=== PATIENT | female | born 1945 | race Caucasian/White ===

== ENCOUNTER 2023-10-07 12:22 | Emergency (ER) | payer MEDICARE, SELFPAY ==
[2023-10-07 12:23] VITALS: BP 118/72
--- NOTE | 2023-10-07 13:35 | ED.GENMED ---
History of Present Illness
General
Chief Complaint: Anal/Rectal Problem
Time Seen by Provider: 10/07/23 13:35
Travel History
Have you had any contact with someone who has COVID-19?: No
Do you have any symptoms of coronavirus? Fever > 100 degrees, chills, cough, shortness of breath, sore throat, loss of taste or smell, muscle aches, or headache?: No
History of Present Illness
History of Present Illness:
HPI: Patient presents by ambulance from [facility] [employer] [facility] with concerns for prolapsed rectum. Of note, the patient was also have an IR procedure for liver biopsy due to abnormal recent CT imaging of the abdomen pelvis with concern for
liver cancer. The patient has no pain. She states she has had another similar episode of rectal prolapse about 5 years
EXAM:
GENERAL: Well appearing in no distress
HEENT: Moist oral mucosa
ABDOMEN: Soft with no peritoneal signs, no tenderness, small external hemorrhoid which is soft and nontender, there is no suggestion of rectal prolapse but I did push on the perianal region
NEUROLOGIC: Excellent strength all extremities, no coordination deficits
PSYCHIATRIC: Appropriate mental status, normal insight and judgement
EXTREMITIES: Nontender, no edema, moves all extremities equally
SKIN: No rash, no lesions
ED COURSE:
1:45 PM: I initially evaluated patient
NUMBER AND COMPLEXITY OF PROBLEMS ADDRESSED AT THE ENCOUNTER
� Chronic conditions affecting care: Memory loss, high blood pressure, anxiety/depression
� Acute Exacerbation and/or Progression of Chronic Illness: This is a recurring problem
� Differential Diagnosis includes: Prolapsed rectum, external hemorrhoid, thrombosed external hemorrhoid
AMOUNT AND/OR COMPLEXITY OF DATA TO BE REVIEWED AND ANALYZED
� I performed an independent evaluation of and my interpretation is:
EKG:
CT:
X-rays:
Laboratory Studies:
Other:
� Review of other/old records: The patient had a CAT scan 2 weeks ago of the abdomen pelvis which showed a large heterogeneous hepatic mass with concern for malignancy
� Clinical information was obtained by an independent historian:
� Prescriptions/Medications Considered but not given:
� Further testing considered but not performed: Imaging not indicated
RISK OF COMPLICATIONS AND/OR MORBIDITY OR MORTALITY OF PATIENT MANAGEMENT
� Social determinants of health affecting care: Lives at [facility]
� Discussion with other providers: I spoke to IR, Dr. Mirza who recommends the patient reschedule liver biopsy
� Escalation of care including admission/observation vs risk of discharge considered: No evidence of rectal prolapse on physical examination. IR will not do the liver biopsy today as the patient ate 2 hours ago. I have given
her the contact information for local colorectal surgeon to follow-up with.
Past History
Past History
ED Past Medical History: HTN, Psychiatric (anxiey), Other (Osteoarthritis, osteoporosis, nonspecified steroid-dependent arthritis) and Other (Chronic headaches)
ED Past Surgical History: Appendectomy
Social History
Tobacco: Non-smoker
Living: with family
Family History
Family History: Negative Diabetes, Hypertension, Early CAD, Asthma or Cancer
Phy Exam
Physical Exam
Physical Exam:
See HPI
Course
Vital Signs
Initial and Last Documented VS:
Initial Vital Signs
Temp Pulse Resp BP Pulse Ox
98.2 F 81 18 118/72 96
10/07/23 12:23 10/07/23 12:23 10/07/23 12:23 10/07/23 12:23 10/07/23 12:23
Last Documented Vital Signs
Temp Pulse Resp BP Pulse Ox
98.2 F 81 18 118/72 96
10/07/23 12:23 10/07/23 12:23 10/07/23 12:23 10/07/23 12:23 10/07/23 12:23
*Critical Care Note
Total Time (30-74mins, 75-104mins- exclusive of procedures): Not Applicable
ED Attending Note
-
Portions of this chart may have been created with voice recognition software.� Occasional wrong word or��sound alike� substitutions may have occurred due to the inherent limitations of voice recognition software.
Discharge Plan
Departure
Patient Disposition: Home (Routine Discharge)
Date of Disposition: 10/07/23
Time of Disposition: 14:01
Patient with high blood pressure during this ER visit?: No
Discharge Problem:
Rectal prolapse
Instructions: Rectal prolapse in adults
Prescriptions:
No Action
alprazolam 0.5 MG tablet,disintegrating
0.5 mg PO TID
losartan 100 mg Tablet
100 mg PO DAILY
butalbital-acetaminophen 50-325 mg Capsule
1 cap PO BIDPRN PRN (Reason: headache)
venlafaxine 75 mg Tablet Extended Release 24hr
75 mg PO DAILY
docusate sodium 100 mg Capsule
100 mg PO BID Qty: 30 0RF
bisacodyl 5 mg Tablet,Delayed Release (Dr/Ec)
10 mg PO DAILYPRN PRN (Reason: constipation) Qty: 14 0RF
heparin (porcine) 5,000 unit/mL Solution
5,000 units SC Q8 Qty: 0 0RF
tizanidine 2 mg Tablet
2 mg PO TID Qty: 30 0RF
tramadol 50 mg Tablet
50 mg PO Q6HPRN PRN (Reason: moderate pain) Qty: 30 0RF
Referrals:
Benny Lott MD [Family Provider] -
Carlos Alan MD [Active] - Follow up in 5-7 days
Activity Restrictions/Additional Instructions:
Regarding her rectal prolapse, it is currently not prolapsed. I have given information for local colorectal surgeon if symptoms persist. I also contacted interventional radiology and sent to 8 at noon today, they cannot do the procedure today. I
recommend that you call to reschedule. Call DIANN Callejas dynamics ax developer at .
Interventions
Interventions:
*Risk Screen - Suicide Last Done: 10/07/23 12:23
*General Assessment Last Done: 10/07/23 12:23
*Neglect/Abuse Screening Last Done: 10/07/23 12:23
*ED COVID-19 Vaccine History Last Done: 10/07/23 12:23
[2023-10-07 14:00] VITALS: BP 136/79; BMI 20.5
--- NOTE | 2023-10-07 15:34 | EDRN ---
Report called to Divina Gaines LPN at [facility] at this time.
== END 2023-10-07 15:49 | disposition home or self-care (01) ==
LOC: EMR 12:22
PROVIDERS: EMERGENCY PHYSICIAN Emergency Medicine; FAMILY PHYSICIAN Internal Medicine
DX: K62.3 Rectal prolapse (principal); F32.A Depression, unspecified; F41.9 Anxiety disorder, unspecified; R41.3 Other amnesia
CPT/HCPCS: 99283

== ENCOUNTER 2023-11-12 08:16 | Outpatient (REF) | payer MEDICARE, SELFPAY ==
[2023-11-12] VITALS (8 sets, daily range): BP systolic 69–138; BP diastolic 60–90
[2023-11-12 08:40] LABS: Hematocrit 38.6 % (37.0-47.0); Hemoglobin 13.3 g/dL (12.0-16.0); Mean Corp Hgb Conc. 34.5 g/dL (33.0-37.0); Mean Corpuscular Hgb 29.5 pg (27.0-31.0); Mean Corpuscular Volume 85.6 fL (81.0-99.0); Mean Platelet Volume 8.6 fL (7.4-10.4); Platelet Count 321 10^3/uL (130-400); Red Blood Cell Count 4.51 10^6/uL (4.20-5.40); Red Cell Dist. Width 12.9 % (11.5-14.5)
[2023-11-12 08:52] LABS: INR 1.15; PT 14.5 Sec (11.4-14.6)
== END 2023-11-12 11:35 ==
LOC: RADI 08:16
PROVIDERS: ATTENDING PHYSICIAN Internal Medicine
DX: C22.7 Other specified carcinomas of liver (principal); R16.0 Hepatomegaly, not elsewhere classified; D68.8 Other specified coagulation defects
CPT/HCPCS: 88307; 36415; 47000; 76942; 85027; 85610; 88313; 88333; 88341; 88342; 88360; 99152; 99153

== ENCOUNTER 2023-11-29 22:02 | Inpatient (IN) | payer MEDICARE, SELFPAY ==
[2023-11-29] VITALS (7 sets, daily range): BP systolic 111–133; BP diastolic 74–108; BMI 20.5
[2023-11-29 19:30] LABS: % Basophils 0.2 % (0-2); % Eosinophils 0.4 % (0-6); % Immature Granulocytes 0.6 % (0-0.5); % Lymphocytes 5.2 % (20.5-51.1); % Monocytes 2.6 % (1.7-9.3); Absolute Eosinophils 0.1 10^3/uL (0-0.7); Absolute Immature Granulocytes 0.1 10^3/uL (0-0.05); Absolute Lymphocytes 0.9 10^3/uL (1.2-3.4); Absolute Monocytes 0.4 10^3/uL (0.1-0.6); Absolute Neutrophils 15.1 10^3/uL (1.4-6.5); Hematocrit 39.4 % (37.0-47.0); Hemoglobin 13.4 g/dL (12.0-16.0); Mean Corpuscular Hgb 29.1 pg (27.0-31.0); Mean Corpuscular Volume 85.7 fL (81.0-99.0); Mean Platelet Volume 9.1 fL (7.4-10.4); Nucleated Red Blood Cells % 0 %; Platelet Count 279 10^3/uL (130-400); Red Cell Dist. Width 13.2 % (11.5-14.5); White Blood Cell Count 16.6 10^3/uL (4.8-10.8)
--- NOTE | 2023-11-29 19:45 | ED.MUSCINJ ---
HPI-Injury
General
Chief Complaint: Musculo-Skeletal Complaint
Source: patient
Exam Limitations: none
Time Seen by Provider: 11/29/23 18:45
Nursing documentation reviewed up to this point in time: agreed with
Travel History
Have you had any contact with someone who has COVID-19?: No
Do you have any symptoms of coronavirus? Fever > 100 degrees, chills, cough, shortness of breath, sore throat, loss of taste or smell, muscle aches, or headache?: No
History of Present Illness-Injury
Is this injury a work related problem?: No
Is pt an associate of [facility]?: No
Initial Injury comments:
Patient to ED from assisted living for report of right hip fx. Patient states she fell yesterday. COmplains of pain to her right hip. Brought to ED via EMS for eval.
Past History
Past History
ED Past Medical History: HTN, Psychiatric (anxiey), Other (Osteoarthritis, osteoporosis, nonspecified steroid-dependent arthritis) and Other (Chronic headaches)
ED Past Surgical History: Appendectomy
Social History
Tobacco: Non-smoker
Living: with family
Family History
Family History: Negative Diabetes, Hypertension, Early CAD, Asthma or Cancer
Review of Systems
Review of Systems
Allergies reviewed?: Yes
All Other Systems: ROS reviewed and negative except as documented in HPI and ROS
Constitutional: Reports no symptoms
EENT: Reports no symptoms
Respiratory: Reports no symptoms
Cardiac: Reports no symptoms
ABD/GI: Reports no symptoms
Musculoskeletal: Reports joint pain (Pain to right hip)
Skin: Reports no symptoms
Neurological: Reports no symptoms
Psychiatric: Reports no symptoms
Musculoskeletal Injury Exam
Musculoskeletal Injury Exam
Right Hip:
Pain with Movement?: Moderate
Tender to palpation?: Moderate
Soft tissue swelling?: None
External deformity and angulation?: None
Joint effusion?: None
Contusion?: Moderate
Hematoma-local bleeding into tissue?: None
Strain- Sprain- Tear (Connective tissue injury)?: Moderate
Crepitus with movement?: No
Joint instability?: No
Malalignment/deformity?: No
Range of motion: Limited
Distal skin color and temperature: normal-warm & good color
Capillary Refill: normal
Normal distal neurovascular exam?: Yes
Peripheral Pulses: posterior tibial (right): 3+ and dorsalis pedis (right): 3+
Phy Exam
General Physical Exam
General Presentation: well appearing and mild distress
General age: appears stated age
General Skin: warm and dry
General Habitus: normal
General Mental: alert
Cardiovascular Exam
Cardiovascular Exam: regular rate/rhythm and no edema
Pulmonary Exam
Pulmonary Exam: lungs clear and no respiratory distress
Gastrointestinal Exam
Gastrointestinal Exam: non tender and soft
Musculoskeletal Exam
Musculoskeletal Exam: full ROM and neuro vasc intact
Skin Exam
Skin Exam: normal color, warm/dry and no rash
Psychiatric Exam
Psychiatric Exam: normal mood/affect
Injury Course
Orders/Labs/Results
Orders:
Orders
11/29/23 18:53
Hip, Right 2-3 Views [CR Hip - RT w/wo Pel 2-3 Vw*] Urgent
Comment:
Reason For Exam: fall
Include a pelvis x-ray?: Yes
11/29/23 19:03
Type+Screen Urgent
Complete Blood Count/With Diff Urgent
Comprehensive Metabolic Panel Urgent
PTT Urgent
Prothrombin Time Urgent
11/29/23 19:32
Urinalysis Reflex To Culture Urgent
Date Specimen was Collected: 11/29/23
Time Specimen was Collected: 19:30
Urine Microscopic Reflex Cult Urgent
Urine Culture Urgent
KAREN Source: U
Specimen Description:
Date Specimen was Collected: 11/29/23
Time Specimen was Collected: 19:30
11/29/23 20:43
ORTHOPEDIC CONSULT Urgent
Consulting Provider: Adam Stern
Was physician already notified: Yes
11/29/23 21:29
CR Chest Portable - 1 View Urgent
Comment:
Reason For Exam: hypoxia
Reason Study Needs to be Portable: Unable to Transport
11/29/23 21:31
Admit/Transfer Patient As Directed
Co-Sign Provider:
Level of Care: Inpatient admission
Assign to:: Telemetry
Physician / Group: Gabriella
Diagnosis: Hip Fracture
Reason for Telemetry: Other
Other Reason for Telemetry: continuous pulse ox
Date to Stop Telemetry: 12/01/23
Time to Stop Telemetry: 11:00
Reason for Hospitalization: Hip Fracture
Expected length of stay greater than two midnights?: Yes
ELOS- Estimated Length of Stay in days: 3
I certify the patient meets the requirements for IP care: Yes
11/29/23 21:34
Code Status As Directed
Resuscitation Status: Do not resuscitate
Based on pt advanced directive or healthcare POA form: Yes
11/29/23 21:53
DNR Bracelet Application ONCE
11/30/23 Breakfast
NPO
Allow oral meds: Yes
Allow clear liquids: No
11/30/23 07:00
CeFAZolin 2 GRAM [Ancef] 2 grams in 10 ml IV PRE PROCEDURE
Povidone Iodine 10% Solution [Povidone Iodine 10%] 114 ml 0.9% Sod Chloride 3000 ml Irr [Nss Irrigation Bag] 3,000 ml IRRIG OR
Tranexamic Acid 3,000 mg 0.9% Sodium Chloride 250 ml [Nss] 250 ml IRRIG OR
12/01/23 11:00
DC Protocol for Telemetry ONCE
Abnormal Lab Results
11/29/23 11/29/23
19:03 19:32
WBC 16.6 H 10^3/uL
(4.8-10.8)
Abs Immat Gran (auto) 0.1 H 10^3/uL
(0-0.05)
Absolute Neuts (auto) 15.1 H 10^3/uL
(1.4-6.5)
Absolute Lymphs (auto) 0.9 L 10^3/uL
(1.2-3.4)
Immature Gran % 0.6 H %
(0-0.5)
Neutrophils % 91.0 H %
(42.2-75.2)
Lymphocytes % 5.2 L %
(20.5-51.1)
PT 18.1 H Sec
(11.4-14.6)
APTT 35.3 H Sec
(23.4-35.0)
Sodium 132 L mmol/L
(135-145)
Chloride 93 L mmol/L
(98-107)
BUN 18 H mg/dl
(7-17)
Glucose 150 H mg/dl
(70-99)
Urine Ketones Trace A
(Negative)
Leukocyte Esterase Rfl 1+ A
(Negative)
Urine WBC (Reflex) 50-60 A /HPF
(0-5)
Urine Bacteria (Reflex) Few A
(Negative)
Urine Albumin (Reflex) 1+ A
(Neg - Trace)
11/29/23 19:03
11/29/23 19:03
*Radiology
Radiology exam reviewed: radiology read reviewed
*Pulse Oximetry
Patient hypoxic: no
*Critical Care Note
Total Time (30-74mins, 75-104mins- exclusive of procedures): Not Applicable
Update Note
Update Note:
Dr. Stern consulted. Requests NPO after midnight. Patient admitted to hospitalists service.
ED Attending Note
-
Portions of this chart may have been created with voice recognition software.� Occasional wrong word or��sound alike� substitutions may have occurred due to the inherent limitations of voice recognition software.
Discharge Plan
Departure
Patient Disposition: Admit
Date of Disposition: 11/29/23
Time of Disposition: 20:42
Presentation/result/management discussed w/ accepting MD/DO: Hospitalist
Condition: Fair
Discharge Problem:
Closed fracture of neck of right femur
Interventions
Interventions:
*Risk Screen - Suicide Last Done: 11/29/23 19:05
*General Assessment Last Done: 11/29/23 19:05
*Neglect/Abuse Screening Last Done: 11/29/23 19:05
ED- Fall Risk Assessment Last Done: 11/29/23 19:05
*ED COVID-19 Vaccine History Last Done: 11/29/23 19:05
*Nursing Disposition Last Done: 11/29/23 21:19
ED-Musculoskeletal Assessment Last Done: 11/29/23 19:05
[2023-11-29 19:48] LABS: ALT (SGPT) 22 U/L (0-35); AST (SGOT) 36 U/L (14-36); Albumin 4.1 g/dl (3.5-5.0); Alkaline Phosphatase 118 U/L (38-126); Blood Urea Nitrogen 18 mg/dl (7-17); Calcium 9.6 mg/dl (8.4-10.2); Carbon Dioxide 30 mmol/L (22-30); Chloride 93 mmol/L (98-107); Estimated Creatinine Clearance 65 ml/min; Glucose 150 mg/dl (70-99); Potassium 4.5 mmol/L (3.5-5.1); Sodium 132 mmol/L (135-145); Total Bilirubin 0.8 mg/dl (0.2-1.3); Total Protein 7.2 g/dl (6.3-8.2); eGFR > 60.00
[2023-11-29 19:57] LABS: APTT 35.3 Sec (23.4-35.0); INR 1.51; PT 18.1 Sec (11.4-14.6)
[2023-11-29 19:58] LABS: Urine Albumin 1+ (Neg - Trace); Urine Bilirubin Negative (Negative); Urine Character Clear (Clear); Urine Color Yellow; Urine Glucose Negative (Negative); Urine Ketone Trace (Negative); Urine Leukocyte 1+ (Negative); Urine Nitrite Negative (Negative); Urine Occult Blood Negative (Negative); Urine Urobilinogen Negative (Neg - 1+)
[2023-11-29 20:10] LABS: Urine Red Blood Cell None Seen /HPF (0-2)
[2023-11-29 20:11] LABS: Urine Bacteria Few (Negative); Urine White Cell 50-60 /HPF (0-5)
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
[2023-11-30] VITALS (14 sets, daily range): BP systolic 96–143; BP diastolic 65–89; BMI 19.4
--- NOTE | 2023-11-30 00:15 | PTCARENOTE ---
pt arrived to unit via stretcher from ED. VSS. Assessment complete (see worklist). Oriented to room and policies. Bed alarm placed and working. Bed in lowest position and side rails up. call mitchell within reach.
[2023-11-30] MEDS: MELATONIN 10 MG PO (00:44)
[2023-11-30] MEDS: SENOKOT 8.59999999999999964 MG PO ×2 (00:44→21:29)
[2023-11-30] MEDS: TYLENOL PO ×3 (00:44→17:40)
[2023-11-30] MEDS: ROCEPHIN 1000 MG IV ×2 (00:45→23:56)
[2023-11-30] MEDS: STERILE WATER FOR INJECTION 10 ML IV ×2 (00:45→23:57)
[2023-11-30] MEDS: NSS 1000 IV (00:50)
--- NOTE | 2023-11-30 05:41 | CON.ORTHO ---
Consultation
-
Date/Time Consultation Requested: 11/29/2023 @ 20:43
Date/Time Consultation Performed: 11/30/2023 @ 5:30
Requesting Provider: Sheela Benson NP
Performing Provider: Marshall Pedro PA-C for Dr. Stern
Reason for Consultation: Right Femoral Neck Fracture
Consultation - Orthopedics
History
HPI: The patient is a 78-year-old female with a past medical history significant for hypertension, anxiety, and osteoporosis who presented to [facility] Emergency Department yesterday evening from her alf after sustaining a fall
11/28/2023. Patient is a limited historian. She is able to recall that she sustained a mechanical fall Wednesday, but is unable to provide further details regarding the circumstances or exact mechanism of injury. She was
brought by EMS to [facility] ED on 11/29/2023 for evaluation of right hip pain. X-rays were obtained, revealing an acute impacted subcapital fracture of the right femoral neck. Currently, she is resting in bed and does report mild
pain to the right hip. She reports increased pain with any movement. She denies any pain elsewhere. She denies hitting her head. At baseline, patient reports that she is fully ambulatory without assistance (confirmed with POA Suzanne). She denies
any anticoagulant use. She denies any other injuries. Patient's POA (Suzanne) reports that patient resides at the [facility], and states that the patient is pretty independent at baseline. She denies any other injuries.
Orthopedic surgery was consulted regarding management of her right hip fracture.
PAST MEDICAL HISTORY: Hypertension, generalized anxiety disorder, mild cognitive impairment, osteoporosis.
PAST SURGICAL HISTORY: Appendectomy, Spine Surgery (multiple vertebroplasty's, bilateral interconnected pedicle screws, mechanical interbody fusion).
SOCIAL HISTORY: Denies tobacco use, alcohol use, and recreational drug use. Patient resides at [facility] and is fully ambulatory without assistance at baseline.
FAMILY HISTORY: Non-contributory.
REVIEW OF SYSTEMS: 12-point review of systems obtained and negative except those mentioned in the HPI.
Allergies / Home Medications
Allergy/AdvReac Type Severity Reaction Status Date / Time
No Known Allergies Allergy Verified 11/29/23 19:45
Medication Instructions Recorded
losartan 100 mg tablet 100 mg PO DAILY Blood pressure 04/27/22
docusate sodium 100 mg capsule 100 mg PO BID #30 caps 05/05/22
acetaminophen 325 mg capsule 650 mg PO Q6H PRN temp/mild pain 11/12/23
alprazolam 0.5 mg tablet 0.5 mg PO BID 11/12/23
amlodipine 5 mg tablet 5 mg PO DAILY 11/12/23
fluticasone propionate 50 1 spray intranasal HS allergies 11/12/23
mcg/actuation nasal
spray,suspension
ibuprofen 400 mg tablet 400 mg PO Q12H PRN mild pain 11/12/23
lanolin alcohols-mineral 1 applic topical BID 11/12/23
oil-w.petrolatum-ceresin topical
cream (Minerin Creme topical)
lidocaine 4 % topical patch 1 patch topical BID 11/12/23
(Lidocaine Pain Relief)
loratadine 10 mg tablet 10 mg PO DAILY allergies 11/12/23
magnesium hydroxide 400 mg/5 mL 30 ml PO HS PRN if no bm in 3 days 11/12/23
oral suspension (Milk of Magnesia)
melatonin 10 mg tablet,extended 10 mg PO HS 11/12/23
release
ondansetron 4 mg disintegrating 4 mg PO Q8H PRN nausea 11/12/23
tablet
polyethylene glycol 3350 17 gram 17 g PO Q12H PRN constipation 11/12/23
oral powder packet (Miralax)
sennosides 8.6 mg tablet (senna) 8.6 mg PO HS 11/12/23
tramadol 50 mg tablet 50 mg PO DAILY PRN moderate pain 11/12/23
venlafaxine 150 mg 150 mg PO DAILY 11/12/23
capsule,extended release 24 hr
bisacodyl 10 mg rectal suppository 10 mg IA Q8H PRN if no bm after MOM 11/29/23
(Dulcolax (bisacodyl))
bisacodyl 5 mg tablet,delayed 10 mg PO DAILY PRN constipation 11/29/23
release
diphenhydramine-zinc acetate 2 1 applic topical Q6H PRN rash 11/29/23
%-0.1 % topical cream (Benadryl
Extra Strength)
Vital Signs / Lab Results
Temp Pulse Resp BP Pulse Ox
98.1 F 94 16 143/82 94
11/30/23 03:10 11/30/23 03:10 11/30/23 03:10 11/30/23 03:10 11/30/23 03:10
RADIOGRAPHIC FINDINGS:
CR Hip - RT w/wo Pel 2-3 Vw was obtained at [facility] on 11/29/2023 and was made available for my review today. Impression: 1) Acute impacted subcapital fracture of the right femoral neck. 2) Moderate bilateral osteoarthritis of the hips.
3) Previous lumbar spinal fusion at L3-L4, L4-L5, and L5-S1. 4) Osteoporosis.
PHYSICAL EXAM:
General: Well-developed, well-nourished female in no acute distress. Mildly confused.
HEENT: NCAT, sclera anicteric, normal conversational hearing.
Heart: No JVD. No lower extremity edema.
Lungs: Normal work of breathing on room air.
MSK: Focused examination of the right lower extremity reveals leg shortened and externally rotated. Positive logroll. Positive tenderness to palpation of the right hip. Range of motion deferred secondary to known fracture. Able to plantarflex
and dorsiflex ankle. She is able to wiggle all toes. NVI distally.
Assessment / Plan
ASSESSMENT: 78-year-old female with an acute impacted subcapital fracture of the right femoral neck.
PLAN: Unfortunately, the patient has sustained a right hip fracture following a mechanical fall Wednesday evening, 11/28/2023. Treatment options were discussed with the patient as well as her POA, Suzanne. After thorough discussion, shared decision was
to proceed with operative fixation. The risks, benefits, potential complications, and expected postoperative course were reviewed. Surgical and blood consents were obtained (from POA) and placed in the patient's chart. Plan for OR later today for
right hip CRPP versus right hip hemiarthroplasty under the direction of Dr. Stern. The patient has been medically cleared to proceed to the OR. She is to remain NPO. She is to remain nonweightbearing to the right lower extremity until postop.
Continue with pain management as needed per primary team. Preoperative Ancef, TXA, and irrigation products on-call to the OR. Right hip marked as the correct surgical extremity. Type and screen has been completed. Hemoglobin on admission 13.4
(11/29/2023). Hemoglobin this AM 13.7. All questions were answered. Orthopedic surgery will continue to follow along at this time.
[2023-11-30 06:56] LABS: Hematocrit 41.2 % (37.0-47.0); Hemoglobin 13.7 g/dL (12.0-16.0); Mean Corp Hgb Conc. 33.3 g/dL (33.0-37.0); Mean Corpuscular Hgb 29.1 pg (27.0-31.0); Mean Corpuscular Volume 87.5 fL (81.0-99.0); Mean Platelet Volume 9.4 fL (7.4-10.4); Platelet Count 271 10^3/uL (130-400); Red Blood Cell Count 4.71 10^6/uL (4.20-5.40); Red Cell Dist. Width 13.2 % (11.5-14.5); White Blood Cell Count 11.9 10^3/uL (4.8-10.8)
[2023-11-30 07:21] LABS: Blood Urea Nitrogen 19 mg/dl (7-17); Calcium 9.5 mg/dl (8.4-10.2); Carbon Dioxide 29 mmol/L (22-30); Chloride 95 mmol/L (98-107); Estimated Creatinine Clearance 61 ml/min; Glucose 135 mg/dl (70-99); Potassium 3.9 mmol/L (3.5-5.1); Sodium 134 mmol/L (135-145); eGFR > 60.00
[2023-11-30] MEDS: COLACE PO (07:41)
[2023-11-30] MEDS: TYLENOL 1000 MG PO ×2 (07:41→21:29)
[2023-11-30] MEDS: XANAX 0.5 MG PO (07:42)
[2023-11-30] MEDS: EFFEXOR XR 150 MG PO (07:42)
[2023-11-30] MEDS: COZAAR 100 MG PO (07:42)
[2023-11-30] MEDS: NORVASC 5 MG PO (07:42)
[2023-11-30] MEDS: LIDOCAINE 4% PATCH 1 PATCH TOPICAL (07:43)
--- NOTE | 2023-11-30 12:11 | CM ---
Addendum entered by Meghann Greene 11/30/23 14:23:
Patient is a LTC patient at [facility], with Bed hold per [facility]. Patient MC so no auth required for discharge. CM left for nurse asking for what level of care she was prior to transfer to [facility]. VM left.
Original Note:
Patient seen at bedside. CM called to [facility] and left requesting call back for discharge planning needs.
Plan; return to SNF; pending treatment plan
[2023-11-30] MEDS: NSS IV (13:51)
--- NOTE | 2023-11-30 13:53 | TRANSFER ---
Patient to OR for repair of right femoral neck fracture
--- NOTE | 2023-11-30 14:30 | W.PN.HOSP.TC ---
Today's Communication/Plan
-
for OR today
continue other meds
Assessment / Plan
Assessment / Plan
Right Hip Fracture
-Continue Tylenol 1000mg TID
-Continue oxycodone for mild/moderate pain and Dilaudid for severe pain
-Continue bowel regimen
-Ortho planning to take to OR
Urinary Tract Infection
-Continue Rocephin
-Await urine culture
Essential Hypertension
-Continue amlodipine and losartan with hold parameters
Generalized Anxiety Disorder
-Continue venlafaxine
-Continue alprazolam
Mild Cognitive Impairment
-Monitor for mood/behavior changes during hospitalization
DVT proph: SCDs
Code Status: DNR per paperwork from [place]
Anticipated Discharge: Within 24 hours
Subjective/Interval History
-
Date of Service: November 30, 2023
Patient sedated
No reported acute issues overnight
Objective Data
-
Labs:
Laboratory Results
11/30/23
06:15
WBC 11.9 H
Hgb 13.7
Hct 41.2
Plt Count 271
Sodium 134 L
Potassium 3.9
Chloride 95 L
Carbon Dioxide 29
BUN 19 H
Creatinine 0.6
Glucose 135 H
Calcium 9.5
Vital Signs:
Vital Signs
Temp Pulse Resp BP Pulse Ox
97.5 F 89 16 128/89 97
11/30/23 10:32 11/30/23 10:32 11/30/23 10:32 11/30/23 10:32 11/30/23 10:32
I&O
11/29/23 11/30/23 12/01/23
06:59 06:59 06:59
Output Total 50 / 50
Balance -50 / -50
Review of Systems
-
Unable to obtain full review of systems at this time due to: Acuity
Physical Exam
-
General: Comfortable, Appears Chronically Ill and Cachectic
HEENT: Oxygen
Respiratory: Clear to Auscultation
Cardiac: Regular Rhythm and S1/S2; Negative Murmur
GI: Soft, Nontender and Nondistended
Musculoskeletal: No Edema
Neuro: Alert; Negative Awake
Psych: Calm
--- NOTE | 2023-11-30 15:59 | W.IMMPOSTOP ---
Surgical Immed Post Op Note
-
Primary Surgeon: Leena
Warehouse And Receiving Supervisor: Carolina Liu PA-C
Pre-op Diagnosis: Right hip femoral neck fracture
Post-op Diagnosis: Same
Procedure Performed: Right hip hemiarthroplasty
Anesthesia Type: General
Specimen / Cultures: None
Estimated Blood Loss: 20cc
Complications: None
Operative Findings: Dictated [id number]
Plan:
WBAT
ASA 325 for 30 days
PT/ OT
--- NOTE | 2023-11-30 17:58 | PTCARENOTE ---
Patient received from PACU in bed; IVF infusing; Right hip surgical site assessed with LSW; Knee immobilizer in place to right knee; Patient denies pain at this time; Bed in lowest position, wheels locked; Call mitchell within reach; Bed alarm on;
Assessment ongoing
[2023-11-30] MEDS: ASPIRIN 325 MG PO (18:01)
[2023-11-30] MEDS: XANAX PO (21:28)
[2023-11-30] MEDS: COLACE 100 MG PO (21:28)
[2023-11-30] MEDS: ANCEF 5 IV (21:28)
[2023-11-30] MEDS: BACTROBAN 2% OINTMENT 1 APPLIC NASAL (21:29)
[2023-11-30] MEDS: MELATONIN PO (21:29)
[2023-12-01] VITALS (8 sets, daily range): BP systolic 100–143; BP diastolic 58–92; PULSE 89–97; O2SAT 96–97; BMI 21.0
[2023-12-01] MEDS: NSS 1000 IV (04:56)
[2023-12-01] MEDS: ANCEF 5 IV (04:57)
[2023-12-01 05:07] LABS: Hematocrit 36.1 % (37.0-47.0); Hemoglobin 12.2 g/dL (12.0-16.0); Mean Corp Hgb Conc. 33.8 g/dL (33.0-37.0); Mean Corpuscular Hgb 29.1 pg (27.0-31.0); Mean Corpuscular Volume 86.2 fL (81.0-99.0); Mean Platelet Volume 9.4 fL (7.4-10.4); Platelet Count 246 10^3/uL (130-400); Red Blood Cell Count 4.19 10^6/uL (4.20-5.40); Red Cell Dist. Width 13.3 % (11.5-14.5); White Blood Cell Count 9.5 10^3/uL (4.8-10.8)
[2023-12-01 05:39] LABS: Blood Urea Nitrogen 23 mg/dl (7-17); Carbon Dioxide 26 mmol/L (22-30); Chloride 100 mmol/L (98-107); Estimated Creatinine Clearance 65 ml/min; Glucose 122 mg/dl (70-99); Potassium 4.1 mmol/L (3.5-5.1); Sodium 132 mmol/L (135-145); eGFR > 60.00
--- NOTE | 2023-12-01 08:40 | W.PN.ORTHO ---
Today's Communication / Plan
-
78 yo F POD1 right hip hemiarthroplasty under the direction of Dr. Stern
--Patient may be WBAT to RLE with walker. Posterior hip precautions. Knee immobilizer. We appreciate the assistance of PT/OT.
--Recommend ASA 325 mg daily x4 weeks for DVT ppx.
--Continue current pain management regimen. Ice and elevation for pain and edema control.
--Hgb 12.2 this AM. Continue to monitor.
--Maintain Aquacel dressing until 7-10 days post-op.
--Case management consult for discharge planning.
Assessment
.
Distal Motor Intact: Yes
Dressing:
Clean, dry and intact.
Plan
.
Surgery / Date: R hip cortney, 11/29, Dr. Stern
DVT Prophylaxis: Aspirin
Activity:
Out of bed.
PT/OT
Subjective
.
.:
Ms. Bullock is POD1 following her right hip hemiarthroplasty performed by Dr. Stern. She is resting comfortably in bed this morning, and reports she is doing well. She endorses only mild aching in the hip. She has no questions or concerns at this
time.
Vital Signs and Labs
.
Vital Signs and Labs:
Lab Results
12/01/23 04:37
12/01/23 04:37
Temp Pulse Resp BP Pulse Ox
97.6 F 73 18 143/84 95
12/01/23 07:10 12/01/23 07:10 12/01/23 07:10 12/01/23 07:10 12/01/23 07:10
PT 18.1 Sec (11.4-14.6) H 11/29/23 19:03
INR 1.51 11/29/23 19:03
Non-invasive Hgb result: 11.5
Physical Exam
-
Directed exam of the right lower extremity reveals Aquacel dressing clean, dry and intact. No tenderness to palpation about the hip. Thigh soft and compressible. Calf soft and nontender. Patient able to wiggle toes, plantar and dorsiflex ankle.
Neurovascularly intact distally.
Knee immobilizer in place to right lower extremity.
[2023-12-01] MEDS: COZAAR 100 MG PO (09:54)
[2023-12-01] MEDS: XANAX 0.5 MG PO ×2 (09:54→21:02)
[2023-12-01] MEDS: EFFEXOR XR 150 MG PO (09:55)
[2023-12-01] MEDS: LIDOCAINE 4% PATCH 1 PATCH TOPICAL (09:55)
[2023-12-01] MEDS: COLACE 100 MG PO (09:55)
[2023-12-01] MEDS: TYLENOL 1000 MG PO ×3 (09:55→21:02)
[2023-12-01] MEDS: ASPIRIN 325 MG PO (09:55)
[2023-12-01] MEDS: NORVASC 5 MG PO (09:55)
[2023-12-01] MEDS: BACTROBAN 2% OINTMENT 1 APPLIC NASAL ×2 (09:56→21:03)
--- NOTE | 2023-12-01 13:21 | W.PN.HOSP.TC ---
Today's Communication/Plan
-
discharge planning for rehab
Assessment / Plan
Assessment / Plan
Right Hip Fracture
s/p Right hip hemiarthroplasty
-Continue bowel regimen
-Ortho planning to take to OR
-PT/OT evaluation
Urinary Tract Infection
-Continue Rocephin
-Urine culture negative.
Essential Hypertension
-Continue amlodipine and losartan with hold parameters
Generalized Anxiety Disorder
-Continue venlafaxine
-Continue alprazolam
Mild Cognitive Impairment
-Monitor for mood/behavior changes during hospitalization
DVT proph: SCDs
Code Status: DNR per paperwork from [place]
Anticipated Discharge: Within 24 hours
Subjective/Interval History
-
Date of Service: December 01, 2023
resting comfortable in chair
no pain problem
Objective Data
-
Labs:
Laboratory Results
12/01/23
04:37
WBC 9.5
Hgb 12.2
Hct 36.1 L
Plt Count 246
Sodium 132 L
Potassium 4.1
Chloride 100
Carbon Dioxide 26
BUN 23 H
Creatinine 0.6
Glucose 122 H
Calcium 8.0 L D
Vital Signs:
Vital Signs
Temp Pulse Resp BP Pulse Ox
97.7 F 97 17 130/92 97
12/01/23 11:05 12/01/23 11:05 12/01/23 11:05 12/01/23 11:05 12/01/23 11:05
I&O
11/30/23 12/01/23 12/02/23
06:59 06:59 06:59
Intake Total 1889 / 1889
Output Total 50 / 50 100 / 100
Balance -50 / -50 1789
Review of Systems
-
Respiratory: Reports No Symptoms
Cardiac: Reports No Symptoms
Abdomen/GI: Reports No Symptoms
Physical Exam
-
General: Comfortable and Cachectic
HEENT: Oxygen
Respiratory: Clear to Auscultation
Cardiac: Regular Rhythm and S1/S2; Negative Murmur
GI: Soft, Nontender and Nondistended
Musculoskeletal: No Edema and Other (Right hip dressing )
Neuro: Alert and Oriented; Negative Awake
Psych: Calm
--- NOTE | 2023-12-01 15:02 | CM ---
Anticipate discharge back to [facility] for resumption of LTC and PT/OT services on , 12/02/23. Patient, Admissions at [facility] and [facility] notified.
--- NOTE | 2023-12-01 20:00 | PTCARENOTE ---
Attempted to wean o2 to RA, pt currently on 2L. weaning trial failed d/t oxygen saturation remained mid 80's on RA. IS at bedside and patient encouraged to use.
[2023-12-01] MEDS: COLACE PO (21:00)
[2023-12-01] MEDS: MELATONIN 10 MG PO (21:02)
[2023-12-01] MEDS: SENOKOT PO (21:09)
[2023-12-01] MEDS: ROCEPHIN 1000 MG IV (23:04)
[2023-12-01] MEDS: STERILE WATER FOR INJECTION 10 ML IV (23:05)
[2023-12-02 03:05] VITALS: BP 130/76
[2023-12-02 05:02] LABS: Hematocrit 33.2 % (37.0-47.0); Hemoglobin 11.4 g/dL (12.0-16.0); Mean Corp Hgb Conc. 34.3 g/dL (33.0-37.0); Mean Corpuscular Hgb 29.9 pg (27.0-31.0); Mean Corpuscular Volume 87.1 fL (81.0-99.0); Mean Platelet Volume 9.6 fL (7.4-10.4); Platelet Count 234 10^3/uL (130-400); Red Blood Cell Count 3.81 10^6/uL (4.20-5.40); Red Cell Dist. Width 13.5 % (11.5-14.5); White Blood Cell Count 8.6 10^3/uL (4.8-10.8)
[2023-12-02 05:38] LABS: Blood Urea Nitrogen 25 mg/dl (7-17); Calcium 8.1 mg/dl (8.4-10.2); Carbon Dioxide 28 mmol/L (22-30); Chloride 101 mmol/L (98-107); Estimated Creatinine Clearance 56 ml/min; Glucose 96 mg/dl (70-99); Potassium 3.7 mmol/L (3.5-5.1); Sodium 133 mmol/L (135-145); eGFR > 60.00
[2023-12-02 06:00] VITALS: BMI 21.8
--- NOTE | 2023-12-02 07:09 | W.PN.ORTHO ---
Today's Communication / Plan
-
PT/OT
Hip precautions
Aspirin for DVT prophylaxis
[facility] once medically stable
Skin clip removal 2 weeks postop
Follow-up orthopedics 1 month
Assessment
.
Distal Motor Intact: Yes
Dressing:
Clean, dry and intact.
Plan
.
Surgery / Date: R hip cortnye, 11/29, Dr. Stern
DVT Prophylaxis: Aspirin
Activity:
Out of bed.
PT/OT
Discharge Plan: SNF
Subjective
.
.:
Patient resting comfortably.
Vital Signs and Labs
.
Vital Signs and Labs:
Lab Results
12/02/23 04:15
12/02/23 04:15
Temp Pulse Resp BP Pulse Ox
97.8 F 80 20 130/76 96
12/02/23 03:05 12/02/23 03:05 12/02/23 03:05 12/02/23 03:05 12/02/23 05:02
PT 18.1 Sec (11.4-14.6) H 11/29/23 19:03
INR 1.51 11/29/23 19:03
Non-invasive Hgb result: 13.8
[2023-12-02 07:10] VITALS: BP 135/90
[2023-12-02] MEDS: NORVASC 5 MG PO (07:43)
[2023-12-02] MEDS: XANAX 0.5 MG PO (07:43)
[2023-12-02] MEDS: TYLENOL 1000 MG PO (07:43)
[2023-12-02] MEDS: COZAAR 100 MG PO (07:44)
[2023-12-02] MEDS: ASPIRIN 325 MG PO (07:44)
[2023-12-02] MEDS: COLACE 100 MG PO (07:44)
[2023-12-02] MEDS: EFFEXOR XR 150 MG PO (07:44)
[2023-12-02] MEDS: LIDOCAINE 4% PATCH 1 PATCH TOPICAL (07:45)
--- NOTE | 2023-12-02 08:17 | W.PN.HOSP.TC ---
Addendum entered and electronically signed by Orion Callahan MD 12/02/23 11:20:
Rt hip fx from osteoporosis and traumatic injury in conjunction
Original Note:
Today's Communication/Plan
-
dc to SNF
Assessment / Plan
Assessment / Plan
Right Hip Fracture
s/p Right hip hemiarthroplasty
-Continue bowel regimen
-doing well post op, POD#2
-PT/OT input appreciated
Urinary Tract Infection
-Completed Rocephin x 3 doses, no further abx indicated
-Urine culture Lactobacillus.
Essential Hypertension
-Continue amlodipine and losartan with hold parameters
Generalized Anxiety Disorder
-Continue venlafaxine
-Continue alprazolam
Mild Cognitive Impairment
-Monitor for mood/behavior changes during hospitalization
DVT proph: SCDs, ASA 325mg daily
Code Status: DNR per paperwork from [place]
DC to SNF
More than 30 minutes spent in discharge including
Final examination of the patient
Summarizing hospital stay
Instructions for continuing care to all relevant caregivers
Preparation of discharge records, prescriptions, and referral forms
Total time spent (in minutes): 45
Anticipated Discharge: Today
Subjective/Interval History
-
Date of Service: December 02, 2023
Awake, alert, pleasant, denies pain
Objective Data
-
Labs:
Laboratory Results
12/02/23
04:15
WBC 8.6
Hgb 11.4 L
Hct 33.2 L
Plt Count 234
Sodium 133 L
Potassium 3.7
Chloride 101
Carbon Dioxide 28
BUN 25 H
Creatinine 0.7
Glucose 96
Calcium 8.1 L
Vital Signs:
Vital Signs
Temp Pulse Resp BP Pulse Ox
97.8 F 91 20 134/85 96
12/02/23 03:05 12/02/23 07:44 12/02/23 03:05 12/02/23 07:44 12/02/23 05:02
I&O
12/01/23 12/02/23 12/03/23
06:59 06:59 06:59
Intake Total 1890 / 1890 800 / 800
Output Total 100 / 100
Balance 1789 / 1789 800 / 800
Review of Systems
-
History Source: Patient
Constitutional: Denies Fever
EENT: Reports No Symptoms Reported
Respiratory: Reports No Symptoms
Cardiac: Reports No Symptoms
Abdomen/GI: Reports No Symptoms
Musculoskeletal: Reports No Symptoms and Joint Pain (pt denies)
Physical Exam
-
General: Well Developed, Well Nourished and No Apparent Distress
HEENT: Normocephalic, Atraumatic and Moist Mucous Membranes
Respiratory: Clear to Auscultation; Negative Wheezes, Rales or Rhonchi
Cardiac: Regular Rhythm and S1/S2
GI: Soft, Nontender and Nondistended
Neuro: Awake and Alert
--- NOTE | 2023-12-02 08:56 | W.DS.TRANS ---
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
-
Discharge Instructions:
Discharge Diagnosis/Procedures Right hip hemiarthroplasty
Diet Regular
Activity With assistance
Additional Activity Posterior hip precautions; knee immobilizer
while in bed
Driving Restrictions No driving
Bathing Restrictions OK to Shower
Other Services PT,OT
Wound Care Maintain Aquacel dressing until 7-10 days post-
op.
Skin clip removal 2 weeks postop
Instructions:
Stand-Alone Forms:
Changes to Home Medications: Yes
Discharge Medications:
DC Medications w/original date entered in [employer]
losartan 100 mg tablet 100 mg PO DAILY Blood pressure 04/27/22
docusate sodium 100 mg capsule 100 mg PO BID #30 caps 05/05/22
acetaminophen 325 mg capsule 650 mg PO Q6H PRN temp/mild pain 11/12/23
amlodipine 5 mg tablet 5 mg PO DAILY Blood Pressure 11/12/23
fluticasone propionate 50 mcg/actuation nasal spray,suspension 1 spray intranasal HS allergies 11/12/23
ibuprofen 400 mg tablet 400 mg PO Q12H PRN mild pain 11/12/23
lanolin alcohols-mineral oil-w.petrolatum-ceresin topical cream (Minerin Creme topical) 1 applic topical BID Skin Issues 11/12/23
lidocaine 4 % topical patch (Lidocaine Pain Relief) 1 patch topical BID Pain 11/12/23
loratadine 10 mg tablet 10 mg PO DAILY allergies 11/12/23
magnesium hydroxide 400 mg/5 mL oral suspension (Milk of Magnesia) 30 ml PO HS PRN if no bm in 3 days 11/12/23
melatonin 10 mg tablet,extended release 10 mg PO HS Sleep 11/12/23
ondansetron 4 mg disintegrating tablet 4 mg PO Q8H PRN nausea 11/12/23
polyethylene glycol 3350 17 gram oral powder packet (Miralax) 17 g PO Q12H PRN constipation 11/12/23
sennosides 8.6 mg tablet (senna) 8.6 mg PO HS Constipation 11/12/23
venlafaxine 150 mg capsule,extended release 24 hr 150 mg PO DAILY Mental Health/Anxiety 11/12/23
bisacodyl 10 mg rectal suppository (Dulcolax (bisacodyl)) 10 mg VA Q8H PRN if no bm after MOM 11/29/23
bisacodyl 5 mg tablet,delayed release 10 mg PO DAILY PRN constipation 11/29/23
diphenhydramine-zinc acetate 2 %-0.1 % topical cream (Benadryl Extra Strength) 1 applic topical Q6H PRN rash 11/29/23
alprazolam 0.5 mg tablet 0.5 mg PO BID #6 tabs 12/02/23
aspirin 325 mg tablet 325 mg PO DAILY #30 tabs 12/02/23
Home Medication Changes
Aspirin 325 added for next 4 weeks
Pending Results: No
--- NOTE | 2023-12-02 09:17 | CM ---
Addendum entered by Geraldine Hayden 12/02/23 09:21:
POA notified of discharge.
Original Note:
Patient has been medically cleared for discharge back to [facility] for resumption of LTC with recommendation for PT/OT services through [facility]. Transport has been scheduled for 11:00am. [facility] admissions notified.
NURSE TO NURSE REPORT # [phone]
FAX # [phone]
[2023-12-02] MEDS: FLUZONE HIGH-DOSE QUAD 2023-24 0.699999999999999956 ML IM (10:14)
[2023-12-02 10:45] VITALS: BP 143/87
--- NOTE | 2023-12-02 11:04 | PN.CDI ---
CDI
- -
CDI:
Physician Documentation Request
Admit Date: 11/29/23 22:02
Dear Doctor London,
Patient presented to ED after fall complain of right hip pain.
H&P states 'She is confused and cannot accurately recall the mechanism of fall'
11/28 hip xray reports 'acute impacted subcapital fracture of right femoral neck' as well as osteoporosis
11/29 patient underwent right hip hemiarthroplasty
Please provide further specificity regarding the diagnosis of fracture:
Etiology
Traumatic
Pathologic due to osteoporosis
Pathologic due to other disease (please specify)
Due to a combination of trauma and a pathological process
but the trauma alone would not likely have been sufficient
to cause the fracture
Use of terms such as suspected, likely, concern for, or probable (associated with a specific diagnosis that is being evaluated, monitored, or treated as if it exists) are acceptable and can be coded in the inpatient setting, when documented at the
time of discharge.
Thank you,
Carly Ross RN, BSN
CDI Specialist
tiger text
Please use your independent medical judgment in providing your response.
== END 2023-12-02 11:10 | DRG 522 ==
LOC: 2 SOUTH 22:02
PROVIDERS: Hospitalist; Nurse Practitioner; Physician Assistant Medical; ADMITTING PHYSICIAN Internal Medicine; ATTENDING PHYSICIAN Internal Medicine; CONSULT PHYSICIAN Orthopaedic Surgery; EMERGENCY PHYSICIAN Emergency Medicine; FAMILY PHYSICIAN Internal Medicine
PROC: 0SRR0J9 Replacement of Right Hip Joint, Femoral Surface with Synthetic Substitute, Cemented, Open Approach (ICD-10-PCS; 2023-11-29)
DX: M80.851A Other osteoporosis with current pathological fracture, right femur, initial encounter for fracture (principal); N39.0 Urinary tract infection, site not specified; I10 Essential (primary) hypertension; F41.1 Generalized anxiety disorder; G31.84 Mild cognitive impairment of uncertain or unknown etiology; B96.89 Other specified bacterial agents as the cause of diseases classified elsewhere
CPT/HCPCS: 71045; 73501; 73502; 76000; 80048; 80053; 81003; 81015; 83735; 85025; 85027; 85610; 85730; 86850; 86900; 86901; 87070; 87086; 90662; 97163; 97167; 97530; 97535; 99285; C1713; C1776; G0008

== ENCOUNTER 2025-03-28 09:42 | Emergency (ER) | payer MEDICARE, OTHER, SELFPAY ==
[2025-03-28 09:46] VITALS: BMI 20.2
--- NOTE | 2025-03-28 09:50 | ED.GENMED ---
History of Present Illness
General
Chief Complaint: Anal/Rectal Problem
Time Seen by Provider: 03/28/25 09:46
History of Present Illness
History of Present Illness:
79-year-old female presents from her residential facility for evaluation of a rectal prolapse that was noted by structural biologist nursing staff last night. The patient denies any rectal pain or difficulty with bowel movements. Has a history of this
that typically self resolved. Denies any other complaints at this time
Past History
Past History
ED Past Medical History: HTN, Psychiatric (anxiey), Other (Osteoarthritis, osteoporosis, nonspecified steroid-dependent arthritis) and Other (Chronic headaches)
ED Past Surgical History: Appendectomy
Social History
Tobacco: Non-smoker
Living: with family
Family History
Family History: Negative Diabetes, Hypertension, Early CAD, Asthma or Cancer
Review of Systems
Review of Systems
Allergies reviewed?: Yes
All Other Systems: ROS reviewed and negative except as documented in HPI and ROS
Phy Exam
Physical Exam
Physical Exam:
GEN: Well appearing, NAD, WDWN
HEENT: Oral mucosa moist, no scleral icterus
Cardiac: Regular rate
Lung: No respiratory distress, no tachypnea
Rectum: On the right rectal prolapse was reduced with manual pressure
MSK: No gross deformity or injuries
Skin: Good color, no pallor or jaundice, no rashes
Neuro: AO x3, moves all extremities freely
Psych: Calm, cooperative
Course
Vital Signs
Initial and Last Documented VS:
Initial Vital Signs
BP
121/83
03/28/25 09:52
Last Documented Vital Signs
Temp Pulse Resp BP Pulse Ox
98.7 F 83 18 115/82 94
03/28/25 09:53 03/28/25 09:53 03/28/25 09:53 03/28/25 11:00 03/28/25 10:45
MDM/Problems Addressed
MDM/Problems Addressed:
Prolapse reduced at the bedside, will refer to colorectal as an outpatient and write orders for outpatient PT for pelvic floor therapy
*Pulse Oximetry
Patient hypoxic: no
*Critical Care Note
Total Time (30-74mins, 75-104mins- exclusive of procedures): Not Applicable
ED Attending Note
-
Portions of this chart may have been created with voice recognition software.� Occasional wrong word or��sound alike� substitutions may have occurred due to the inherent limitations of voice recognition software.
Discharge Plan
Departure
Patient Disposition: Home (Routine Discharge)
Date of Disposition: 03/28/25
Time of Disposition: 09:50
Patient with high blood pressure during this ER visit?: No
Discharge Problem:
Rectal prolapse
Instructions: Rectal prolapse in adults
Prescriptions:
No Action
losartan 100 mg Tablet
100 mg PO DAILY
docusate sodium 100 mg Capsule
100 mg PO BID Qty: 30 0RF
lidocaine [Lidocaine Pain Relief] 4 % Adhesive Patch,Medicated
1 patch TOPICAL BID
Rx Instructions:
lumbar fracture
amlodipine 5 mg Tablet
5 mg PO DAILY
ibuprofen 400 mg Tablet
400 mg PO Q12H PRN (Reason: mild pain)
fluticasone propionate 50 mcg/actuation [place],Suspension
1 spray INTRANASAL HS
loratadine 10 mg Tablet
10 mg PO DAILY
melatonin 10 mg Tablet Extended Release
10 mg PO HS
sennosides [senna] 8.6 mg Tablet
8.6 mg PO HS
Rx Instructions:
2 tabs
polyethylene glycol 3350 [Miralax] 17 gram Powder In Packet
17 g PO Q12H PRN (Reason: constipation)
venlafaxine 150 mg Capsule,Extended Release 24hr
150 mg PO DAILY
magnesium hydroxide [Milk of Magnesia] 400 mg/5 mL Suspension
30 ml PO HS PRN (Reason: if no bm in 3 days)
ondansetron 4 mg Tablet,Disintegrating
4 mg PO Q8H PRN (Reason: nausea)
acetaminophen 325 mg Capsule
650 mg PO Q6H PRN (Reason: temp/mild pain)
Minerin Creme Cream
1 applic TOPICAL BID
Rx Instructions:
bilateral shins-eczema
Benadryl Extra Strength 2-0.1 % Cream
1 applic TOPICAL Q6H PRN (Reason: rash)
Rx Instructions:
apply to rash on legs, arms, chest
bisacodyl [Dulcolax (bisacodyl)] 10 mg Suppository
10 mg ND Q8H PRN (Reason: if no bm after MOM)
bisacodyl 5 mg tablet,delayed release (DR/EC)
10 mg PO DAILY PRN (Reason: constipation)
aspirin 325 mg Tablet
325 mg PO DAILY Qty: 30 0RF
alprazolam 0.5 mg Tablet
0.5 mg PO BID Qty: 6 0RF
Referrals:
Dirk Elias MD [Active, Colo[facility]]
Activity Restrictions/Additional Instructions:
Calli needs to follow up with the colorectal surgeon listed on her paperwork if symptoms recur
I have written orders for outpatient pelvic floor therapy to prevent recurrence
Interventions
Interventions:
*Risk Screen - Suicide Last Done: 03/28/25 09:44
*General Assessment Last Done: 03/28/25 09:47
*Neglect/Abuse Screening Last Done: 03/28/25 09:44
*ED- Fall Risk Assessment Last Done: 03/28/25 09:47
*ED COVID-19 Vaccine History Last Done: 03/28/25 09:47
*Nursing Disposition Last Done: 03/28/25 11:18
NU-Ubdbbe-Jcsnqnqxso Assessment Last Done: 03/28/25 09:57
ED-Skin Assessment Last Done: 03/28/25 09:57
Discharge Date and Time
Discharge Date/Time: 03/28/25 11:20
Print Language: AFGHAN
[2025-03-28 09:52] VITALS: BP 121/83
[2025-03-28 09:53] VITALS: BP 121/83
[2025-03-28 10:00] VITALS: BP 121/77
[2025-03-28 11:00] VITALS: BP 115/82
== END 2025-03-28 11:20 | disposition home or self-care (01) ==
LOC: EMR 09:42
PROVIDERS: EMERGENCY PHYSICIAN Emergency Medicine; FAMILY PHYSICIAN Internal Medicine
DX: K62.3 Rectal prolapse (principal); I10 Essential (primary) hypertension; F41.9 Anxiety disorder, unspecified; M19.90 Unspecified osteoarthritis, unspecified site; M81.0 Age-related osteoporosis without current pathological fracture; Z82.49 Family history of ischemic heart disease and other diseases of the circulatory system; Z90.49 Acquired absence of other specified parts of digestive tract
CPT/HCPCS: 99282

== ENCOUNTER → 2025-04-10 10:50 | Outpatient (REF) | payer MEDICARE, OTHER, SELFPAY ==
[2025-04-10 10:59] LABS: Hematocrit 34.6 % (37.0-47.0); Hemoglobin 11.1 g/dL (12.0-16.0); Mean Corp Hgb Conc. 32.1 g/dL (33.0-37.0); Mean Corpuscular Volume 81.4 fL (81.0-99.0); Platelet Count 439 10^3/uL (130-400); Red Cell Dist. Width 14.0 % (11.5-14.5)
[2025-04-10 11:30] LABS: ALT (SGPT) 13 U/L (0-35); AST (SGOT) 20 U/L (14-36); Albumin 4.1 g/dl (3.5-5.0); Alkaline Phosphatase 92 U/L (38-126); Blood Urea Nitrogen 17 mg/dl (7-17); Calcium 9.5 mg/dl (8.4-10.2); Carbon Dioxide 30 mmol/L (22-30); Chloride 98 mmol/L (98-107); Glucose 100 mg/dl (70-99); Potassium 4.7 mmol/L (3.5-5.1); Sodium 135 mmol/L (135-145); Total Protein 7.4 g/dl (6.3-8.2); eGFR > 60.00
[2025-04-10 11:48] LABS: Free T3 3.24 pg/ml (2.77-5.27)
[2025-04-10 12:01] LABS: TSH 0.64 uIU/ml (0.47-4.68)
== END ==
LOC: OIDL 10:50
PROVIDERS: ATTENDING PHYSICIAN Internal Medicine Hematology & Oncology
DX: D50.0 Iron deficiency anemia secondary to blood loss (chronic) (principal); C78.7 Secondary malignant neoplasm of liver and intrahepatic bile duct; C80.1 Malignant (primary) neoplasm, unspecified; Z85.9 Personal history of malignant neoplasm, unspecified; G44.89 Other headache syndrome; E03.9 Hypothyroidism, unspecified
CPT/HCPCS: 80053; 84439; 84443; 84481; 85025

== ENCOUNTER → 2025-05-28 10:31 | Outpatient (REF) | payer MEDICARE, OTHER, SELFPAY ==
[2025-05-28 10:10] LABS: Hematocrit 35.2 % (37.0-47.0); Hemoglobin 11.0 g/dL (12.0-16.0); Mean Corp Hgb Conc. 31.3 g/dL (33.0-37.0); Mean Corpuscular Volume 80.9 fL (81.0-99.0); Platelet Count 541 10^3/uL (130-400); Red Cell Dist. Width 16.1 % (11.5-14.5)
[2025-05-28 11:15] LABS: ALT (SGPT) 23 U/L (0-35); AST (SGOT) 25 U/L (14-36); Albumin 4.1 g/dl (3.5-5.0); Alkaline Phosphatase 104 U/L (38-126); Blood Urea Nitrogen 21 mg/dl (7-17); Calcium 9.4 mg/dl (8.4-10.2); Carbon Dioxide 28 mmol/L (22-30); Chloride 99 mmol/L (98-107); Glucose 92 mg/dl (70-99); Potassium 4.7 mmol/L (3.5-5.1); Sodium 136 mmol/L (135-145); Total Protein 7.5 g/dl (6.3-8.2); eGFR > 60.00
[2025-05-28 11:33] LABS: Free T3 2.83 pg/ml (2.77-5.27)
[2025-05-28 11:46] LABS: TSH 0.65 uIU/ml (0.47-4.68)
== END ==
LOC: OIDL 10:31
PROVIDERS: ATTENDING PHYSICIAN Internal Medicine Hematology & Oncology
DX: D50.0 Iron deficiency anemia secondary to blood loss (chronic) (principal); C78.7 Secondary malignant neoplasm of liver and intrahepatic bile duct; C80.1 Malignant (primary) neoplasm, unspecified; Z85.9 Personal history of malignant neoplasm, unspecified; G44.89 Other headache syndrome; R53.83 Other fatigue
CPT/HCPCS: 80053; 84443; 84481; 85025

== ENCOUNTER → 2025-06-18 08:36 | Outpatient (REF) | payer MEDICARE, OTHER, SELFPAY ==
[2025-06-18 09:11] LABS: Glucose 118 mg/dl (70-99)
== END ==
LOC: PET 08:36
PROVIDERS: ATTENDING PHYSICIAN Internal Medicine Hematology & Oncology
DX: C80.1 Malignant (primary) neoplasm, unspecified (principal); C78.7 Secondary malignant neoplasm of liver and intrahepatic bile duct; N39.0 Urinary tract infection, site not specified; D50.0 Iron deficiency anemia secondary to blood loss (chronic); Z85.9 Personal history of malignant neoplasm, unspecified; G44.89 Other headache syndrome
CPT/HCPCS: 36415; 82947